=== PATIENT | male | born 1985 | race Caucasian/White ===

== ENCOUNTER 2020-08-13 14:22 | Emergency (ER) | payer OTHER ==
[~2020-08-13] VITALS: Ht 198.1 cm; Wt 90.7 kg
[2020-08-13] MEDS ORDERED: Veetids 500500 MG PO (14:46)
[2020-08-13] MEDS ORDERED: IBU600 M1 PO (14:48)
== END 2020-08-13 15:07 | disposition home or self-care (01) ==
LOC: ER 14:22
DX: K04.7 Periapical abscess without sinus (principal); Z88.6 Allergy status to analgesic agent; Z88.0 Allergy status to penicillin
CPT/HCPCS: 99282